=== PATIENT | female | born 1985 | race Caucasian/White ===

== ENCOUNTER 2017-11-23 16:57 | Emergency (ER) | payer OTHER, MEDICAID ==
[~2017-11-23] VITALS: Ht 167.6 cm; Wt 92.5 kg
[~2017-11-23 16:57] MED LIST: ACCUNEB0.63 MG/3 IH; ACETAMINOPHEN-1 EAC1 PO; ACETAMINOPHEN-120 ML PO; ALAVERT10 MG PO; ALBUTEROL NEB; AZITHROMYCIN 2250 MG PO; B-100 COMPLEX1 EAC1 PO; BACTRIM DS TAB1 EACH PO; CARISOPRODOL 3350 MG PO; CLEOCIN HCL150 MG PO; CYMBALTA60 MG PO; DOCQLACE; ESTRACE2 MG PO; ESTRADERM1 EACH TD; ESTRADIOL 1 MG T1 M1 PO; FLEXERIL PO; GLUCOPHAGE500 MG PO; IBUPROFEN 800800 M1 GT; IBUPROFEN 800800 MG PO; LORTAB 5 MG/5001 TAB PO; LYRICA 75 MG CA75 MG; MECLIZINE HCL25 M1; METFORMIN 500500 MG PO; NAPROSYN500 MG PO; NORCO 5-325 TA1 EACH PO; NUVARING VAGIN1 EACH VG; PEPCID20 MG PO; PERCOCET 5-3251 EACH PO; PHENERGAN 25 MG25 M1; PHENERGAN 25 MG25 M1 PO; PRILOSEC 20 MG20 MG PO; PROAIR HFA8.5 GM IH; PROMETHAZINE HC25 M2; PROVENTIL IH; RELAFEN500 MG PO; SERTRALINE HCL50 MG; SERTRALINE HCL50 MG PO; SINGULAIR 10 MG10 MG PO; SINGULAIR 4 MG C4 M1 PO; SPIRONOLACTONE25 M1 PO; TESTOSTERONE BLOCKER; TRAMADOL 50 MG50 MG PO; TRAZODONE 50 MG50 MG OR; ULTRAM 50MG TAB50 MG PO; VALIUM5 MG PO; VICODIN 5-5001 EACH PO; VIT B12 INJECTION IM; VITAMIN D-32000 UNIT PO; XANAX 0.5 MG0.5 M1 PO; XANAX 0.5 MG0.5 MG PO; XANAX1 MG PO; ZOFRAN ODT4 MG SUBLING; ZOLOFT 50 MG TA50 M1 PO; ZOLOFT100 MG PO; [UNRECOGNIZED DRUG - REMARK]
[2017-11-23 17:25] LABS: ABSOLUTE BASOPHILS 0.1 thou/uL (0.0-0.2); ABSOLUTE EOSINOPHILS 0.4 thou/uL (0.0-0.7); ABSOLUTE LYMPHOCYTES 3.3 thou/uL (0.8-5.3); ABSOLUTE MONOCYTES 0.3 thou/uL (0.0-1.2); ABSOLUTE NEUTROPHILS 3.4 thou/uL (1.6-8.1); BASOPHILS 0.8 %; HEMATOCRIT 44.5 % (37.0-47.0); HEMOGLOBIN 15.3 gm/dL (12.0-15.0); LYMPHOCYTES 44.1 %; MCH 33.3 pg (26.0-34.0); MCHC 34.5 g/dL (28.0-37.0); MCV 96.5 fL (80.0-100.0); MONOCYTES 4.5 %; MPV 8.8 fl. (7.2-11.1); NUCLEATED RBCS 0 /100WBC; PLATELET COUNT* 198 thou/uL (150-400); POLYS 45.6 %; RBC 4.61 mil/uL (4.20-5.00); RDW-CV 12.9 % (10.5-14.5); WBC 7.4 thou/uL (4.0-11.0)
[2017-11-23 17:34] LABS: ANION GAP 7 mmol/L (7-16); BUN 10 mg/dL (7-18); CALCIUM 9.1 mg/dL (8.5-10.1); CHLORIDE 105 mmol/L (98-107); CO2 29 mmol/L (21-32); CREATININE 0.8 mg/dL (0.6-1.3); GLUCOSE 89 mg/dL (70-99); POTASSIUM 3.3 mmol/L (3.5-5.1); SODIUM 141 mmol/L (136-145)
[2017-11-23 17:38] LABS: APTT 23.8 Seconds (25.0-31.3); PROTIME 9.5 Seconds (9.20-11.50)
[2017-11-23 17:42] LABS: ALKALINE PHOSPHATASE 86 U/L (46-116); LIPASE 170 U/L (73-393); SGOT 17 U/L (15-37); SGPT 24 U/L (30-65); TOTAL BILIRUBIN 0.2 mg/dL (<0.1-1.0); TOTAL PROTEIN 7.7 g/dL (6.4-8.2); TROPONIN-I LEVEL <0.06 ng/mL (<0.06)
[2017-11-23 18:05] LABS: INFLUENZA A ANTIGEN None Detected (None Detect); INFLUENZA B ANTIGEN None Detected (None Detect)
[2017-11-23] MEDS ORDERED: ZPAK PO (18:29)
[2017-11-23 18:47] VITALS: BP 117/83
--- NOTE | 2017-11-24 11:18 | EKG ---
[place] [address] ELECTROCARDIOGRAM REPORT Name: SAVANA ROSS [id number] Admission: 11/23/17 Attend Phys: Discharge: 11/23/17 Date of : 85 Report #: [id number] THIS REPORT FOR: //name// [facility] ED Test Date: 2017-11-23 Test Time: 16:59:52 Pat Name: SAVANA ROSS Department: Room: Gender: F Office Aide: CHANTEL : 1985 Requested By: Vasiliy Carlos Order Number: [id number] MD: Handy Damon Measurements Intervals [place] Rate: 73 P: 42 NV: 160 QRS: 31 QRSD: 87 T: 54 QT: 358 QTc: 395 Interpretive Statements Sinus rhythm Compared to ECG 02/09/2016 18:04:21 No significant changes Electronically Signed On 11-24-2017 11:17:51 [employer] by Handy Damon [email or web address] <ELECTRONICALLY SIGNED> By: Handy Damon MD, [facility] 11/24/17 1117 1659 1659 Handy Damon MD, FACC /EPI
== END 2017-11-23 18:48 | disposition home or self-care (01) ==
LOC: M.ERS 16:57
PROVIDERS: Family Medicine
DX: R55 Syncope and collapse (principal)

== ENCOUNTER 2019-08-22 10:46 | Emergency (ER) | payer OTHER ==
[~2019-08-22] VITALS: Ht 172.7 cm; Wt 83.9 kg
[~2019-08-22 10:46] MED LIST changes: +ZPAK PO
[2019-08-22] MEDS ORDERED: BACTRIM DS TAB1 EAC1 PO (11:41)
[2019-08-22 12:17] VITALS: BP 124/65
== END 2019-08-22 12:20 | disposition home or self-care (01) ==
LOC: M.ERS 10:46
DX: S61.213A Laceration without foreign body of left middle finger without damage to nail, initial encounter (principal); I10 Essential (primary) hypertension; J45.909 Unspecified asthma, uncomplicated; F31.9 Bipolar disorder, unspecified; E78.00 Pure hypercholesterolemia, unspecified; K58.9 Irritable bowel syndrome, unspecified; F17.210 Nicotine dependence, cigarettes, uncomplicated; Z90.49 Acquired absence of other specified parts of digestive tract; Z90.710 Acquired absence of both cervix and uterus; Z90.89 Acquired absence of other organs; Z98.890 Other specified postprocedural states; Z85.41 Personal history of malignant neoplasm of cervix uteri; Z86.14 Personal history of Methicillin resistant Staphylococcus aureus infection; Z91.030 Bee allergy status; Z91.040 Latex allergy status; Z88.0 Allergy status to penicillin; Z88.1 Allergy status to other antibiotic agents; W26.8XXA Contact with other sharp object(s), not elsewhere classified, initial encounter; Y93.89 Activity, other specified; Y92.89 Other specified places as the place of occurrence of the external cause; Y99.0 Civilian activity done for income or pay

== ENCOUNTER 2020-01-25 08:47 | Emergency (ER) | payer OTHER ==
[~2020-01-25] VITALS: Ht 167.6 cm; Wt 83.9 kg
[~2020-01-25 08:47] MED LIST changes: +BACTRIM DS TAB1 EAC1 PO
[2020-01-25 08:54] VITALS: BP 134/80
[2020-01-25 09:21] LABS: INFLUENZA A ANTIGEN Negative (Negative); INFLUENZA B ANTIGEN Negative (Negative)
== END 2020-01-25 09:42 | disposition home or self-care (01) ==
LOC: M.ERS 08:47
PROVIDERS: Family Medicine
DX: B34.9 Viral infection, unspecified (principal); I10 Essential (primary) hypertension; E78.00 Pure hypercholesterolemia, unspecified; E28.2 Polycystic ovarian syndrome; K58.9 Irritable bowel syndrome, unspecified; J45.909 Unspecified asthma, uncomplicated; F31.9 Bipolar disorder, unspecified; F17.210 Nicotine dependence, cigarettes, uncomplicated; Z90.49 Acquired absence of other specified parts of digestive tract; Z98.890 Other specified postprocedural states; Z85.41 Personal history of malignant neoplasm of cervix uteri; Z86.14 Personal history of Methicillin resistant Staphylococcus aureus infection; Z90.710 Acquired absence of both cervix and uterus; Z91.040 Latex allergy status; Z91.030 Bee allergy status; Z88.0 Allergy status to penicillin; Z88.1 Allergy status to other antibiotic agents; Z88.8 Allergy status to other drugs, medicaments and biological substances

== ENCOUNTER 2020-06-27 09:09 | Observation (INO) | payer OTHER ==
[~2020-06-27] VITALS: Ht 167.6 cm; Wt 85.7 kg
[2020-06-27 09:14] VITALS: BP 152/94
[2020-06-27 10:19] LABS: ABSOLUTE EOSINOPHILS 0.4 thou/uL (0.0-0.7); ABSOLUTE LYMPHOCYTES 2.7 thou/uL (0.8-5.3); ABSOLUTE MONOCYTES 0.2 thou/uL (0.0-1.2); ABSOLUTE NEUTROPHILS 2.5 thou/uL (1.6-8.1); BASOPHILS 0.7 %; EOSINOPHILS 7.2 %; HEMATOCRIT 44.8 % (37.0-47.0); HEMOGLOBIN 15.8 gm/dL (12.0-15.0); LYMPHOCYTES 45.3 %; MCH 34.3 pg (26.0-34.0); MCHC 35.2 g/dL (28.0-37.0); MCV 97.3 fL (80.0-100.0); MONOCYTES 3.6 %; MPV 8.9 fl. (7.2-11.1); NUCLEATED RBCS 0 /100WBC; PLATELET COUNT* 202 thou/uL (150-400); POLYS 43.2 %; RDW-CV 12.3 % (10.5-14.5); WBC 5.9 thou/uL (4.0-11.0)
[2020-06-27 10:26] LABS: CALCIUM 9.2 mg/dL (8.5-10.1); CREATININE 0.7 mg/dL (0.6-1.3); POTASSIUM 3.9 mmol/L (3.5-5.1)
[2020-06-27 10:30] LABS: ALBUMIN 4.2 g/dL (3.4-5.0); TOTAL BILIRUBIN 0.3 mg/dL (<0.1-1.0); TOTAL PROTEIN 7.6 g/dL (6.4-8.2)
[2020-06-27 10:32] LABS: PROTIME 9.9 Seconds (9.20-11.50)
[2020-06-27 11:34] LABS: CHOLESTEROL 250 mg/dL (<200); HDL CHOLESTEROL 65 mg/dL (>40); LDL CHOLESTEROL 169 mg/dL (<100); SERUM ASSESSMENT Clear; TC:HDL 3.8 Ratio (Not establshd); TRIGLYCERIDE 83 mg/dL (<150); VLDL 17 mg/dL (<40)
[2020-06-27] MEDS ORDERED: XANAX 0.5 MG0.5 MG PO (14:06)
[2020-06-27] MEDS ORDERED: OMEPRAZOLE20 M3 PO (14:08)
[2020-06-27] MEDS ORDERED: TUMS300 MG PO (14:09)
[2020-06-27] MEDS ORDERED: BIOTIN1 MG PO (14:11)
[2020-06-27] MEDS ORDERED: PRENATAL TABLE1 EAC2 PO (14:11)
--- NOTE | 2020-06-27 14:39 | EKG ---
[place] [address] ELECTROCARDIOGRAM REPORT Name: SAVANA ROSS Room: [address]R.#: [id number] Admission: 06/27/20 Attend Phys: Joseph Ontiveros Discharge: Date of : 85 Date of Service: 06/27/20911 Report #: [id number] THIS REPORT FOR: //name// [facility] ED Test Date: 2020-06-27 Test Time: 09:12:22 Pat Name: SAVANA ROSS Department: Room: [facility] Gender: F Csw: RENETTA : 1985 Requested By: Gemma Ferguson Order Number: [id number] MD: Handy Damon Measurements Intervals [place] Rate: 96 P: 73 [place]: 146 QRS: -11 QRSD: 90 T: 71 QT: 337 QTc: 426 Interpretive Statements Sinus rhythm late transition nonspecific st segment changes Compared to ECG 11/23/2017 16:59:52 ST (T wave) deviation now present Electronically Signed On 06-27-2020 14:39:36 CDT by Handy Damon [email or web address] <ELECTRONICALLY SIGNED> By: Handy Damon MD, [facility] 06/27/20 1439 1 1 Handy Damon MD, [facility] /EPI
[2020-06-27] MEDS ORDERED: XANAX1 MG PO (15:10)
[2020-06-27 17:31] VITALS: BP 115/73
[2020-06-27 21:00] VITALS: BP 107/53
[2020-06-27 21:30] VITALS: BP 115/59
[2020-06-28] VITALS (18 sets, daily range): BP systolic 89–112; BP diastolic 40–74
--- NOTE | 2020-06-28 03:09 | NUR ---
PT ADMIT TO 223 AT 0. ALERT ORIENTED X 4. UP AD JD. MORPHINE GIVEN FOR CP. TELEMETRY SHOWS SR. NPO AT UT FOR CARDIOLOGY CONSULT. WCTM
--- NOTE | 2020-06-28 08:16 | NUR ---
RECIEVED REPORT AROUND 0710. ASSUMED CARE. VS AND ASSESSMENT CHARTED. PT ATTACHED TO HEART MONITOR. IV INTACT. PAIN REPORT. WOULD LIKE TO TALK TO PATIENT ADVOCATE TODAY ABOUT EXPERIENCE. PT LYING IN BED. UP AD JD. CALL LIGHT WITH IN REACH.WILL CONTINUE TO MONITOR.
--- NOTE | 2020-06-28 13:18 | NUR ---
Pt is A&O. Resides at home with her and dtr. Independent and active. No DME. No hx of HH or SNF. Pt states that she is having a cath today. Goal is home at tn. Med Assist assessed Pt for MO CAROL in the ED. Following.
[2020-06-28] MEDS ORDERED: PANTOPRAZOLE SO40 M1 PO (13:37)
--- NOTE | 2020-06-28 18:06 | CARD ---
[address] [address] CARDIAC CATH REPORT Name: SAVANA ROSS Room: [address] Carlos MPhilipp#: [id number] Admission: 06/27/20 Attend Phys: Jm Chamberlain Discharge: Date of : 85 Report #: [id number] THIS REPORT FOR: //name// cc: JESSIE Still No family physician/PCP JESSIE - No family physician/PCP ~ APPROVED REPORT Study performed: 06/28/2020 11:19:40 Patient Details Patient Status: In-Patient Room #: The patient is a 35 year-old female Event Personnel Handy Damon Media Sales Representative, Rosario James RN RN, Aakash Duarteub, Laura Kim RTR Monitor Procedures Performed Art Access - R radial artery Left Heart Cath w/or w/o Coronaries Hemostasis with Hemoband Indication Abnormal ECG, Chest pain Risk Factors Arterial Hypertension, Family History, Hypercholesterolemia, Tobacco History () Admission/Lab Medications/Medications given during procedure Heparin Unfract., Oxygen Nasal cannula 2 l per min, 0.9% Sodium Chloride IV 75 ml per hr, Midazolam (Versed) IV 2 mg, Lidocaine Subcut 5 ml, Nitroglycerin IA 200 mcg, Verapamil IA 2.5 mg, Heparin IV 4200 units, Fentanyl IV 25 mcg Procedure Narrative The patient was brought electively to the Cardiac Catheterization Laboratory and was prepped and draped in a sterile manner. The right wrist was infiltrated with 2% Lidocaine subcutaneous anesthesia. A Slender Glidesheath sheath was inserted into the right radial artery. Coronary angiography was performed using coronary diagnostic catheters. The right coronary system was accessed and visualized with a Diagnostic 6 Fr JR 4 catheter. The left coronary system was accessed and visualized with a Diagnostic 6 Fr JL 4 catheter. The left ventricle was accessed and visualized with a Diagnostic 5 Fr Pigtail catheter. Left ventricular/[place] [address] CARDIAC CATH REPORT Name: SAVANA ROSS Room: [address] M.R.#: [id number] Admission: 06/27/20 Attend Phys: Jm Chamberlain Discharge: Date of : 85 Report #: [id number] catheter pullback. Left ventriculogram was performed in BEST projection. Closure device was deployed with a 6 Fr Reg Vascband. The patient tolerated the procedure well and there were no complications associated with the procedure. There was no hematoma. Patient complained of right arm pain with exchanges of the 6 Gambian catheters. A 5 Gambian pigtail catheter was used to perform left ventriculography Intraoperative Conscious Sedation Sedation start time: 11:46 Case end Time: 12:03 Fentanyl 25 mcg Versed 4 mg Fluoro Time: 4.0 minutes Dose: DAP 70475 cGycm2 708 mGy Contrast Type and Amount: Omnipaque 90 ml [place] Artery Percent Stenosis Left Main: 0 % Prox LAD: 0 % Mid/Distal LAD: 30 % Circumflex: 0 % RCA: 0 % Ramus: % Left Ventriculography The left ventricular ejection fraction is estimated to be 60-65%. Left ventricular wall motion abnormalities are not present. There is no mitral insufficiency. Hemodynamics The aortic pressure is 94/54 mmHg with a mean of 57 mmHg. The left ventricular pressure is 92/8 mmHg with a mean of mmHg. The left ventricular end diastolic pressure is 8 mmHg. There was no gradient across the aortic valve upon pullback. Pullback from the left ventricle to the aorta revealed no gradient across the aortic valve. Conclusion 1. Minimal CAD with a maximal stenosis of 30% in the mid LAD 2. LVEF 60-65% 3. suspect noncardiac chest pain Recommendations Smoking Cessation <ELECTRONICALLY SIGNED> By: Handy Damon MD, FACC 06/28/201804 04 04Davijm Damon MD, FACC /INF
[2020-06-28] MEDS ORDERED: PROTONIX40 M2 PO (18:13)
--- NOTE | 2020-06-28 19:01 | NUR ---
PT HAD HEART CATH. NO ABNORMALITIES FOUND. POST CARDIAC CATH ASSESSMENT AND VITALS CHARTED. RADSTAT BAND TAKE OFF. GAUZE AND TRANSPRATENT DRESSING PLACED. SLING OBTAINED PER PT REQUEST. DISCHARGE RECIEVED. DISCHARGE PUT INTO PLACE. PACKET WENT OVER WITH PATIENT AND SPOUSE. COMMUNITCATED UNDERSTANDING. ALL BELONGINGS LEFT WITH PATIENT VIA WHEELCHAIR WITH NURSING STAFF OFF THE UNIT AT 1900.
== END 2020-06-28 18:58 | disposition home or self-care (01) ==
LOC: M.ERS 09:09 → M.TBA-ER 13:05 → M.2W 21:43
PROVIDERS: Personal Emergency Response Attendant; ADMIT Internal Medicine; ATTEND Internal Medicine
DX: Z03.818 Encounter for observation for suspected exposure to other biological agents ruled out (principal); I20.9 Angina pectoris, unspecified; I10 Essential (primary) hypertension; E78.5 Hyperlipidemia, unspecified; K22.70 Barrett's esophagus without dysplasia; K21.9 Gastro-esophageal reflux disease without esophagitis; F41.9 Anxiety disorder, unspecified; F32.9 Major depressive disorder, single episode, unspecified; F43.10 Post-traumatic stress disorder, unspecified; J45.909 Unspecified asthma, uncomplicated; F17.210 Nicotine dependence, cigarettes, uncomplicated; Z79.82 Long term (current) use of aspirin; Z79.899 Other long term (current) drug therapy; Z82.49 Family history of ischemic heart disease and other diseases of the circulatory system

== ENCOUNTER 2021-02-22 13:44 | Emergency (ER) | payer OTHER ==
[~2021-02-22] VITALS: Ht 165.1 cm; Wt 55.3 kg
[~2021-02-22 13:44] MED LIST changes: +BIOTIN1 MG PO; +OMEPRAZOLE20 M3 PO; +PANTOPRAZOLE SO40 M1 PO; +PRENATAL TABLE1 EAC2 PO; +PROTONIX40 M2 PO; +TUMS300 MG PO
[2021-02-22] MEDS ORDERED: CLONAZEPAM 0.50.5 M1 PO (13:54)
[2021-02-22 14:20] LABS: ABSOLUTE EOSINOPHILS 0.5 thou/uL (0.0-0.7); ABSOLUTE MONOCYTES 0.3 thou/uL (0.0-1.2); ABSOLUTE NEUTROPHILS 2.8 thou/uL (1.6-8.1); BASOPHILS 0.7 %; EOSINOPHILS 7.1 %; HEMATOCRIT 42.6 % (37.0-47.0); HEMOGLOBIN 14.7 gm/dL (12.0-15.0); LYMPHOCYTES 45.1 %; MCH 33.7 pg (26.0-34.0); MCHC 34.5 g/dL (28.0-37.0); MCV 97.8 fL (80.0-100.0); MPV 8.4 fl. (7.2-11.1); NUCLEATED RBCS 0 /100WBC; PLATELET COUNT* 211 thou/uL (150-400); POLYS 43.1 %; RBC 4.36 mil/uL (4.20-5.00); RDW-CV 12.7 % (10.5-14.5); WBC 6.6 thou/uL (4.0-11.0)
[2021-02-22 14:27] LABS: CALCIUM 8.8 mg/dL (8.5-10.1); CREATININE 0.7 mg/dL (0.6-1.3); POTASSIUM 3.8 mmol/L (3.5-5.1)
[2021-02-22 14:35] LABS: APTT 23.8 Seconds (25.0-31.3); PROTIME 10.2 Seconds (9.20-11.50)
[2021-02-22 14:38] LABS: ALBUMIN 4.1 g/dL (3.4-5.0); MAGNESIUM 1.8 mg/dL (1.8-2.4); TOTAL BILIRUBIN 0.4 mg/dL (<0.1-1.0); TOTAL PROTEIN 7.5 g/dL (6.4-8.2)
[2021-02-22 16:00] VITALS: BP 104/65
[2021-02-22] MEDS ORDERED: ZANAFLEX4 MG PO (16:01)
[2021-02-22] MEDS ORDERED: VENTOLIN HFA 1818 GM INH (16:01)
[2021-02-22] MEDS ORDERED: MEDROLDOSEPACK PO (16:01)
[2021-02-22] MEDS ORDERED: ZPAK PO (16:01)
--- NOTE | 2021-02-23 09:50 | EKG ---
[place] [address] ELECTROCARDIOGRAM REPORT Name: SAVANA ROSS Room: [facility]#: [id number] Admission: 02/22/21 Attend Phys: Discharge: 02/22/21 Date of : 85 Date of Service: 02/22/21 1350 Report #: [id number] THIS REPORT FOR: //name// [facility] ED Test Date: 2021-02-22 Test Time: 13:50:09 Pat Name: SAVANA ROSS Department: Room: Gender: F Emergency Medicine Physician Assistant: [facility] : 1985 Requested By: Reg Garrison Order Number: [id number] MD: Handy Damon Measurements Intervals [place] Rate: 69 P: 46 FL: 150 QRS: 19 QRSD: 97 T: 43 QT: 384 QTc: 412 Interpretive Statements Sinus rhythm Consider left atrial enlargement Compared to ECG 06/27/2020 09:12:22 No significant changes Electronically Signed On 02-23-2021 9:50:25 CDT by Handy Damon [email or web address] <ELECTRONICALLY SIGNED> By: Handy Damon MD, [facility] 02/23/21 0950 1350 1350 Handy Damon MD, [facility] /EPI
== END 2021-02-22 16:00 | disposition home or self-care (01) ==
LOC: M.ERS 13:44
PROVIDERS: Emergency Medicine Emergency Medical Services
DX: J20.9 Acute bronchitis, unspecified (principal); Z20.822 Contact with and (suspected) exposure to COVID-19; R09.1 Pleurisy; M79.89 Other specified soft tissue disorders; M79.669 Pain in unspecified lower leg; I10 Essential (primary) hypertension; Z90.89 Acquired absence of other organs; K21.9 Gastro-esophageal reflux disease without esophagitis; J45.909 Unspecified asthma, uncomplicated; F41.9 Anxiety disorder, unspecified; E78.00 Pure hypercholesterolemia, unspecified; F17.210 Nicotine dependence, cigarettes, uncomplicated; E78.5 Hyperlipidemia, unspecified; Z98.890 Other specified postprocedural states; Z31.9 Encounter for procreative management, unspecified; Z85.41 Personal history of malignant neoplasm of cervix uteri; Z86.14 Personal history of Methicillin resistant Staphylococcus aureus infection; Z90.711 Acquired absence of uterus with remaining cervical stump; Z90.49 Acquired absence of other specified parts of digestive tract; Z98.61 Coronary angioplasty status; Z79.899 Other long term (current) drug therapy; Z91.030 Bee allergy status; Z91.040 Latex allergy status; Z88.0 Allergy status to penicillin; Z88.1 Allergy status to other antibiotic agents; Z88.8 Allergy status to other drugs, medicaments and biological substances

== ENCOUNTER 2021-07-28 12:23 | Emergency (ER) | payer OTHER ==
[~2021-07-28] VITALS: Ht 167.6 cm; Wt 77.1 kg
[~2021-07-28 12:23] MED LIST changes: +CLONAZEPAM 0.50.5 M1 PO; +MEDROLDOSEPACK PO; +VENTOLIN HFA 1818 GM INH; +ZANAFLEX4 MG PO
[2021-07-28] MEDS ORDERED: XANAX 0.5 MG0.5 M1 PO (12:28)
[2021-07-28 13:06] LABS: MCH 33.9 pg (26.0-34.0); NUCLEATED RBCS 0 /100WBC; WBC 7.6 thou/uL (4.0-11.0)
[2021-07-28 13:08] LABS: ABSOLUTE BASOPHILS 0.1 thou/uL (0.0-0.2); ABSOLUTE EOSINOPHILS 0.7 thou/uL (0.0-0.7); ABSOLUTE LYMPHOCYTES 3.3 thou/uL (0.8-5.3); ABSOLUTE MONOCYTES 0.2 thou/uL (0.0-1.2); ABSOLUTE NEUTROPHILS 3.3 thou/uL (1.6-8.1); BASOPHILS 0.9 %; EOSINOPHILS 9.7 %; HEMATOCRIT 41.7 % (37.0-47.0); HEMOGLOBIN 14.6 gm/dL (12.0-15.0); LYMPHOCYTES 43.1 %; MCHC 35.1 g/dL (28.0-37.0); MCV 96.6 fL (80.0-100.0); MONOCYTES 3.3 %; MPV 8.3 fl. (7.2-11.1); PLATELET COUNT* 203 thou/uL (150-400); RBC 4.31 mil/uL (4.20-5.00); RDW-CV 12.5 % (10.5-14.5)
[2021-07-28 13:17] LABS: CALCIUM 8.6 mg/dL (8.5-10.1); CREATININE 0.8 mg/dL (0.6-1.3); POTASSIUM 4.1 mmol/L (3.5-5.1)
[2021-07-28 13:22] LABS: ALBUMIN 4.1 g/dL (3.4-5.0); MAGNESIUM 1.9 mg/dL (1.8-2.4); TOTAL BILIRUBIN 0.3 mg/dL (<0.1-1.0)
[2021-07-28] MEDS ORDERED: FLEXERIL PO (15:22)
[2021-07-28] MEDS ORDERED: ZOFRAN ODT4 MG DISSOLVE (15:22)
[2021-07-28 15:34] VITALS: BP 103/62
--- NOTE | 2021-07-29 10:30 | EKG ---
[place] [address] ELECTROCARDIOGRAM REPORT Name: SAVANA ROSS Room: [facility]#: [id number] Admission: 07/28/21 Attend Phys: Discharge: 07/28/21 Date of : 85 Date of Service: 07/28/21 1242 Report #: [id number] THIS REPORT FOR: //name// [facility] ED Test Date: 2021-07-28 Test Time: 12:42:30 Pat Name: SAVANA ROSS Department: Room: Gender: F Fiber Technician: MARISSA : 1985 Requested By: Reg Garrison Order Number: [id number] MD: Handy Damon Measurements Intervals [place] Rate: 76 P: 64 [place]: 189 QRS: 31 QRSD: 91 T: 56 QT: 392 QTc: 441 Interpretive Statements Sinus rhythm Compared to ECG 02/22/2021 13:50:09 No significant changes Electronically Signed On 07-29-2021 10:29:49 CDT by Handy Damon [email or web address] <ELECTRONICALLY SIGNED> By: Handy Damon MD, [facility] 07/29/21 1029 1242 1242 Handy Damon MD, FACC /EPI
--- NOTE | 2021-07-29 10:34 | EKG ---
[place] [address] ELECTROCARDIOGRAM REPORT Name: SAVANA ROSS Room: [facility]#: [id number] Admission: 07/28/21 Attend Phys: Discharge: 07/28/21 Date of : 85 Date of Service: 07/28/21 1501 Report #: [id number] THIS REPORT FOR: //name// [facility] ED Test Date: 2021-07-28 Test Time: 15:01:30 Pat Name: SAVANA ROSS Department: Room: Gender: F Automatic Shirring Machine Operator: MARISSA : 1985 Requested By: Reg Garrison Order Number: [id number] MD: Handy Damon Measurements Intervals [place] Rate: 56 P: 46 ID: 181 QRS: 23 QRSD: 107 T: 34 QT: 427 QTc: 413 Interpretive Statements Sinus rhythm Baseline wander in lead(s) II Compared to ECG 07/28/2021 12:42:30 rate has slowed Electronically Signed On 07-29-2021 10:34:20 CDT by Hadny Damon [email or web address] <ELECTRONICALLY SIGNED> By: Handy Damon MD, [facility] 07/29/21 1034 1501 1501 Handy Damon MD, [facility] /EPI
== END 2021-07-28 15:34 | disposition home or self-care (01) ==
LOC: M.ERS 12:23
PROVIDERS: Emergency Medicine Emergency Medical Services
DX: R07.89 Other chest pain (principal); Z20.822 Contact with and (suspected) exposure to COVID-19; R11.2 Nausea with vomiting, unspecified; R42 Dizziness and giddiness; K21.9 Gastro-esophageal reflux disease without esophagitis; J45.909 Unspecified asthma, uncomplicated; F41.9 Anxiety disorder, unspecified; F31.9 Bipolar disorder, unspecified; I10 Essential (primary) hypertension; E78.00 Pure hypercholesterolemia, unspecified; F17.210 Nicotine dependence, cigarettes, uncomplicated; Z98.890 Other specified postprocedural states; Z87.42 Personal history of other diseases of the female genital tract; Z86.14 Personal history of Methicillin resistant Staphylococcus aureus infection; Z90.711 Acquired absence of uterus with remaining cervical stump; Z90.49 Acquired absence of other specified parts of digestive tract; Z79.899 Other long term (current) drug therapy; Z91.030 Bee allergy status; Z91.040 Latex allergy status; Z88.0 Allergy status to penicillin; Z88.1 Allergy status to other antibiotic agents; Z90.89 Acquired absence of other organs; Z88.8 Allergy status to other drugs, medicaments and biological substances